=== PATIENT | male | born 1990 | race American Indian/Alaskan Native ===

== ENCOUNTER 2020-03-09 20:40 | Emergency (ER) | payer SELFPAY ==
[2020-03-09 21:26] LABS: Basophils # (Auto) 0.1 K/mm3 (0.0-0.1); Basophils % (Auto) 0.4 % (0.0-1.8); Hematocrit 41.3 % (35.5-45.6); Lymphocytes # (Auto) 1.2 K/mm3 (1.2-5.4); Lymphocytes % (Auto) 8.7 % (13.4-35.0); Mean Corpuscular HGB Conc 34 % (32-34); Mean Corpuscular Volume 91 fl (84-94); Monocytes # (Auto) 1.2 K/mm3 (0.0-0.8); Monocytes % (Auto) 9.1 % (0.0-7.3); Platelet Count 235 K/mm3 (140-440); Red Blood Count 4.54 M/mm3 (3.65-5.03); Red Cell Distribution Width 12.9 % (13.2-15.2)
[2020-03-09 21:43] LABS: BUN/Creatinine Ratio 17; Blood Urea Nitrogen 27 mg/dL (9-20); Calcium 9.6 mg/dL (8.4-10.2); Hemolysis Index 36
--- NOTE | 2020-03-09 21:46 | Emergency Department Report ---
ED Psych HPI - General Chief Complaint: Psych Stated Complaint: ANXIETY Time Seen by Provider: 03/09/20 21:14 Source: patient, family Mode of arrival: Ambulatory Limitations: No Limitations - History of Present Illness Initial Comments: Laly is a 29 yo male with hx of anxiety and unspecified psychosis since 2008. Hx obtained from parents mother Magui Chopra and [phone]. Parents were called by patient's shane for erratic behavior. On , shane called paramedics for abnormal behavior. He has been rearranging furniture. He has been impulsive, paranoid, confused. Patient would not get into the ambulance. He ran away. He was eventually arrested by the police department for trespassing. He was bailed out today by his parents who traveled from [place] to check on him. He has multiple bruises on extremities. Parents assume altercation occurred with police. He takes Abilify 2 mg tablets. He is stable on this medication. However, Laly, at times, attempts natural remedies for his mental health disorder. He recently graduated from college in September. He came to [place] to attending college in [facility]. He has a background in tenriism, youth ministry, and fitness. In [facility], he was receiving mental health care consistently at [facility]. He has had several odd jobs since graduatiing. No hx of tobacco, drug, alcohol use. Mother explains "he is having a mental breakdown". The last instance occurred several years ago when he stopped taking his medications. Due to current mental status, Laly gives limited history. He denies SI/HI MD Complaint: other (paranoia confusion disorganized erratic behavior) -: Gradual, days(s) (several days) Associated Psychiatric Symptoms: racing thoughts History of same: Yes Quality: constant Context: not taking psychiatric, significant life stressor (recent life changes) Treatments Prior to Arrival: other (arrested for trespassing, refusing [employer] transport) - Related Data Previous Rx's Medication Instructions Recorded Last Taken Type ARIPiprazole [Abilify TAB] 10 mg PO QDAY #30 tablet 03/14/20 Unknown Rx traZODone [Desyrel] 50 mg PO QHS #30 tablet 03/14/20 Unknown Rx Allergies Allergy/AdvReac Type Severity Reaction Status Date / Time ziprasidone [From Geodon] AdvReac Unknown Verified 03/10/20 17:44 ED Review of Systems ROS: Stated complaint: ANXIETY Other details as noted in HPI Comment: All other systems reviewed and negative Constitutional: denies: fever, malaise Respiratory: denies: cough Cardiovascular: denies: chest pain Gastrointestinal: denies: abdominal pain, nausea, vomiting Neurological: denies: headache, weakness Psychiatric: denies: anxiety, depression, auditory hallucinations, visual hallucinations ED Past Medical Hx - Past Medical History Previous Medical History?: Yes Hx Psychiatric Treatment: Yes (anxiety nonspecfic psychosis) - Surgical History Past Surgical History?: No - Social History Smoking Status: Never Smoker Substance Use Type: None - Medications Home Medications: Home Medications Medication Instructions Recorded Confirmed Last Taken Type ARIPiprazole [Abilify TAB] 10 mg PO QDAY #30 tablet 03/14/20 Unknown Rx traZODone [Desyrel] 50 mg PO QHS #30 tablet 03/14/20 Unknown Rx ED Physical Exam - General Limitations: No Limitations General appearance: alert, in no apparent distress - Head Head exam: Present: atraumatic, normocephalic - Eye Eye exam: Present: normal appearance - ENT ENT exam: Present: mucous membranes moist - Neck Neck exam: Present: normal inspection, full ROM - Respiratory Respiratory exam: Present: normal lung sounds bilaterally. Absent: respiratory distress, wheezes, rales, rhonchi - Cardiovascular Cardiovascular Exam: Present: regular rate, normal rhythm, normal heart sounds. Absent: systolic murmur, diastolic murmur, rubs, gallop - GI/Abdominal GI/Abdominal exam: Present: soft, normal bowel sounds. Absent: distended, tenderness, guarding, rebound - Rectal Rectal exam: Present: deferred - Extremities Exam Extremities exam: Present: other (bruising lower extremities, bite ciarra right wrist, right hand swelling) - Back Exam Back exam: Present: normal inspection - Neurological Exam Neurological exam: Present: alert, oriented X3 - Psychiatric Psychiatric exam: Present: flat affect - Skin Skin exam: Present: warm, dry, normal color. Absent: rash ED Course Vital Signs 03/09/20 03/10/20 03/10/20 21:16 00:01 01:01 Temperature 98.3 F Pulse Rate 82 Respiratory 16 18 19 Rate Blood Pressure 122/71 [Left] O2 Sat by Pulse 99 Oximetry 03/10/20 03/10/20 03/10/20 02:26 16:46 20:03 Temperature 98.2 F 98.3 F Pulse Rate 74 109 H 100 H Respiratory 16 18 Rate Blood Pressure 110/62 120/57 134/81 [Left] O2 Sat by Pulse 99 100 Oximetry 03/11/20 03/11/20 03/11/20 03:24 06:40 09:15 Temperature 98.0 F 98.7 F 98.8 F Pulse Rate 96 H 115 H 72 Respiratory 18 18 16 Rate Blood Pressure 138/40 146/86 120/82 [Left] O2 Sat by Pulse 100 100 96 Oximetry 03/11/20 03/11/20 03/12/20 15:26 20:00 02:00 Temperature 97.9 F 97.9 F 97.8 F Pulse Rate 76 121 H 75 Respiratory 18 20 16 Rate Blood Pressure 118/84 144/88 116/69 [Left] O2 Sat by Pulse 97 100 97 Oximetry 03/12/20 03/12/20 03/12/20 07:30 16:34 19:32 Temperature 98.0 F 98.2 F 98.9 F Pulse Rate 105 H 98 H 90 Respiratory 20 19 20 Rate Blood Pressure 138/90 128/83 116/68 [Left] O2 Sat by Pulse 97 100 98 Oximetry 03/13/20 03/13/20 03/13/20 01:14 09:25 09:38 Temperature 98.3 F 99.8 F H Pulse Rate 82 120 H 120 H Respiratory 20 18 Rate Blood Pressure 129/77 140/84 [Left] O2 Sat by Pulse 100 98 Oximetry 03/13/20 03/13/20 03/14/20 14:54 22:30 08:19 Temperature 98.7 F 97.6 F Pulse Rate 95 H 99 H Respiratory 19 18 16 Rate Blood Pressure 130/88 133/88 [Left] O2 Sat by Pulse 100 99 Oximetry 03/14/20 14:49 Temperature 98.0 F Pulse Rate 90 Respiratory 16 Rate Blood Pressure 118/82 [Left] O2 Sat by Pulse 99 Oximetry - Reevaluation(s) Reevaluation #1: 03/10/20 00:14 Upon reassessment, I saw the patient was obviously talking to a person or persons not in the room. Laughing inappropriately. I ordered Nasirdon for chemical restraint. ED Medical Decision Making - Lab Data Result diagrams: 03/14/20 09:02 03/09/20 21:16 - Medical Decision Making 1. acute psychosis [address] involuntary hold, Mr. Chopra can not ensure his safety. He has been a harm to himself. He has been trespassing. Recently incarcerated for trespassing as a result of acute psychosis. 2. Contusions of extremities: considering the possibility of human bite, Augmentin ordered Discharge recommended by psychiatry team. Outpatient resources were provided. Critical care attestation.: If time is entered above; I have spent that time in minutes in the direct care of this critically ill patient, excluding procedure time. ED Disposition Clinical Impression: Cellulitis of hand, Acute psychosis Disposition: DC-01 TO HOME OR SELFCARE Is pt being admited?: No Does the pt Need Aspirin: No Condition: Stable Instructions: Brief Psychotic Disorder (ED), Anxiety (ED) Prescriptions: traZODone [Desyrel] 50 mg PO QHS #30 tablet ARIPiprazole [Abilify TAB] 10 mg PO QDAY #30 tablet Referrals: PRIMARY CARE, [Primary Care Provider] - 3-5 Days
[2020-03-09] MEDS ORDERED: SODIUM CHLORIDE 0.9% 1000 ML 1,000 ML IV ONE ×2 (22:01→22:49)
[2020-03-09] MEDS: AMOXICILLIN/K CLAV 875/125MG TAB PO SCH (22:19)
[2020-03-09] MEDS ORDERED: HYDROcodone/ACETAMINOPHEN 5-325 MG TAB PO ONE (23:56)
[2020-03-10] MEDS ORDERED: GLUCAGON (HUMAN RECOMBINANT) 1 MG/ML INJ ONE (00:24)
[2020-03-10] MEDS ORDERED: ZIPRASIDONE MESYLATE 20 MG VIAL IM ONE ×2 (00:25→00:34)
[2020-03-10 07:19] LABS: Bilirubin,Urine NEG (Negative); Blood,Urine LG (Negative); Color,Urine Yellow (Yellow); Mucus,Urine FEW /HPF; Urobilinogen,Urine < 2.0 mg/dL (<2.0)
[2020-03-10 07:32] LABS: Amphetamine Screen,Urine PRESUMPTIVE NEGATIVE; Benzodiazepines Screen,Urine PRESUMPTIVE NEGATIVE; Cocaine Screen,Urine PRESUMPTIVE NEGATIVE; Methadone Screen,Urine PRESUMPTIVE NEGATIVE; Opiate Screen,Urine PRESUMPTIVE NEGATIVE
[2020-03-10 07:45] LABS: Cannabinoid Screen,Urine PRESUMPTIVE POSITIVE
[2020-03-10] MEDS: AMOXICILLIN/K CLAV 875/125MG TAB PO SCH ×2 (10:30→22:01)
[2020-03-10] MEDS ORDERED: diphenhydrAMINE 50 MG/ML VIAL ONE (16:04)
[2020-03-10] MEDS ORDERED: diphenhydrAMINE 50 MG/ML VIAL IV ONE (16:05)
[2020-03-10] MEDS ORDERED: LORazepam 2 MG/ML VIAL IV ONE (16:25)
[2020-03-10] MEDS ORDERED: LORazepam 2 MG/ML VIAL ONE (16:38)
[2020-03-10] MEDS ORDERED: ACETAMINOPHEN 500 MG TAB PO ONE (16:45)
[2020-03-10] MEDS ORDERED: ACETAMINOPHEN 500 MG TAB ONE (16:57)
[2020-03-10] MEDS: ARIPiprazole 5 MG TAB PO SCH (20:17)
[2020-03-11] MEDS ORDERED: SODIUM CHLORIDE 0.9% 1000 ML 1,000 ML IV ONE (06:43)
[2020-03-11] MEDS ORDERED: LORazepam 2 MG/ML VIAL IV ONE (06:43)
[2020-03-11] MEDS ORDERED: LORazepam 2 MG/ML VIAL ONE (06:46)
[2020-03-11] MEDS ORDERED: SODIUM CHLORIDE 0.9% 1000 ML 1,000 ML ONE (06:46)
[2020-03-11] MEDS: ARIPiprazole 5 MG TAB PO SCH (11:00)
[2020-03-11] MEDS: AMOXICILLIN/K CLAV 875/125MG TAB PO SCH ×2 (11:00→21:40)
--- NOTE | 2020-03-11 12:30 | Consultation ---
History of Present Illness - Reason for Consult Consult date: 03/11/20 Reason for consult: phychosis - History of Present Psychiatric Illness The patient's medical record was reviewed and the patient's progress was discussed with the nursing staff. The nurse note states the patient was not in his room and tech was notified that the patient was walking down back azar ~ 0605. Security called and they were unable to locate the patient. [employer] called. The patient was brought [facility] Laly Chopra is a 29y/o male patient who was brought to the hospital by his parents for erratic behavior. During my interview with the patient this morning, he was lying on the cot. He is malodorous. He was asleep but easily arouses. His speech is muffled and low. He is a poor historian. He smiles inappropriately at times. The patient says "I'm not sure why I was admitted." He says, "they thought I was trespassing and trying to break into stuff." He says he has a history of "anxiety, depression and psychosis." The patient says he takes "abilify" to manage his symptoms. He denies SI/HI or hallucinations of any kind. He says he's attempted suicide "once in the past." He says he's been admitted for psych issues "years ago." The patient states, "all this happening with black people getting killed, I was on edge. It was getting to me." He says, "but right now I feel good, chill." He denies any illicit drug use, despite being positive for marijuana. He denies alcohol or nicotine use. PAST PSYCHIATRIC HISTORY: Diagnoses: "anxiety, depression, psychosis" Suicide attempts or Self-harm behavior: Once Prior psychiatric hospitalizations: "years ago" Substance Abuse history: Denies Previous psychiatric medications tried: Abilify Outpatient treatment: Yes PAST MEDICAL HISTORY: None reported Family Psychiatric History: None reported or documented SOCIAL HISTORY Marital Status: Living Arrangements: Employment Status: Employed Access to guns/weapons: Denies Education: Bachelors History of abuse: Denies Legal History: Denies ROS Constitutional: Negative for weight loss EMT: Negative for stridor Respiratory: Negative for cough or hemoptysis All other systems reviewed and are negative MENTAL STATUS EXAMINATION General Appearance: Poor hygiene Behavior: Calm and cooperative. Poor eye contact. Smiles inappropriately. Mood: "Good. Chill" Affect: Congruent with stated mood Speech: Muffled, low tone Thought Process: Goal oriented Suicidal Ideation: Denies Homicidal Ideation: Denies Hallucinations: Denies Delusions: None elicited Insight and Judgment: Limited Memory/Cognition: Limited Assessment and Plan Schizoaffective Disorder RECOMMENDATIONS MEDICATIONS Restarted Abilify 5mg po daily yesterday (increased dose from 2mg po daily) Trazodone 50mg po qhs Geodon 20mg IM q4h prn agitation Risks, benefits and alternatives of medications discussed with the patient, questions answered and consent obtained from patient. PSYCHOTHERAPY: Supportive psychotherapy provided MEDICAL: Per primary team DELIRIUM PRECAUTIONS: Please re-orient patient frequently, keep lights on during the day, and minimize benzodiazepines and opiates as these medications could worsen patient's confusion. LICENSING AND REGISTRATION DIRECTOR: Per medical team DISPOSITION: The patient meets the requirement for acute inpatient psychiatric treatment. He may transfer to an acute facility once medically clear Will continue to follow until the patient is transferred or improves enough for discharge. Thank you for the consult. Please contact with any questions and/or concerns. Medications and Allergies Allergies Allergy/AdvReac Type Severity Reaction Status Date / Time ziprasidone [From Geodon] AdvReac Unknown Verified 03/10/20 17:44 Home Medications Medication Instructions Recorded Confirmed Last Taken Type ARIPiprazole [Abilify TAB] 5 mg PO DAILY 03/09/20 03/09/20 Unknown History Active Meds: Active Medications Amoxicillin/Clavulanate Potassium (Augmentin 875 Mg) 1 each PO BID [facility] Stop: 03/16/20 21:59 Last Admin: 03/10/20 22:01 Dose: 1 each Documented by: Aripiprazole (Aripiprazole) 5 mg PO DAILY [facility] Last Admin: 03/10/20 20:17 Dose: 5 mg Documented by: Mental Status Exam - Vital signs Last Vital Signs Temp 98.8 F 03/11/20 09:15 Pulse 72 03/11/20 09:15 Resp 16 03/11/20 09:15 BP 120/82 03/11/20 09:15 Pulse Ox 96 03/11/20 09:15 Results Result Diagrams: 03/09/20 21:16 03/09/20 21:16 All other labs normal.
[2020-03-11] MEDS ORDERED: ZIPRASIDONE MESYLATE 20 MG VIAL IM PRN (12:44)
[2020-03-11] MEDS: traZODone 50 MG TAB PO SCH (21:40)
[2020-03-12] MEDS: AMOXICILLIN/K CLAV 875/125MG TAB PO SCH ×2 (11:00→21:52)
[2020-03-12] MEDS: ARIPiprazole 5 MG TAB PO SCH (11:00)
--- NOTE | 2020-03-12 11:18 | Progress Note ---
Subjective - Reason for Consult Consult date: 03/12/20 Reason for consult: psychosis - Chief Complaint Chief complaint: The patient's medical record was reviewed and the patient's progress was discussed with the nursing staff. The nurse caring for the patient states he has been pushing the walk and walking along side of it as if he is blind. During my interview with the patient today, he is awake. He is a/ox 2. His behavior is bizarre and disorganized. The patient is attempting to put on his shirt. He is having great difficulty. He is tossing and flipping the shirt in an attempt to not have it inside out. He denies SI/HI. He also denies hallucina tions of any kind. He keeps his head down with his eyes closed, and refuses to look at me. When asked, he states "I'm good, I see you, I'm trying to rest and stay in a state of peace." ROS Constitutional: Negative for weight loss EMT: Negative for stridor Respiratory: Negative for cough or hemoptysis All other systems reviewed and are negative MENTAL STATUS EXAMINATION General Appearance: Poor hygiene Behavior: Bizarre. Disorganized. Mood: "Good." Affect: Congruent with stated mood Speech: Normal tone and pace Thought Process: Disorganized Suicidal Ideation: Denies Homicidal Ideation: Denies Hallucinations: Denies Delusions: None elicited Insight and Judgment: Limited Memory/Cognition: Limited Assessment and Plan Schizoaffective Disorder RECOMMENDATIONS MEDICATIONS Increased Abilify 10mg po daily Depakote DR 125mg po BID Risks, benefits and alternatives of medications discussed with the patient, questions answered and consent obtained from patient. PSYCHOTHERAPY: Supportive psychotherapy provided MEDICAL: Per primary team DELIRIUM PRECAUTIONS: Please re-orient patient frequently, keep lights on during the day, and minimize benzodiazepines and opiates as these medications could worsen patient's confusion. FOREX TRADER: Per medical team DISPOSITION: The patient meets the requirement for acute inpatient psychiatric treatment. He may transfer to an acute facility once medically clear Will continue to follow until the patient is transferred or improves enough for discharge. Thank you for the consult. Please contact with any questions and/or concerns Mental Status Exam - Vital signs Last Vital Signs Temp 98.0 F 03/12/20 07:30 Pulse 105 H 03/12/20 07:30 Resp 20 03/12/20 07:30 BP 138/90 03/12/20 07:30 Pulse Ox 97 03/12/20 07:30
[2020-03-12] MEDS: DIVALPROEX DR 125 MG TAB PO SCH ×2 (12:36→21:53)
[2020-03-12] MEDS: traZODone 50 MG TAB PO SCH (21:55)
--- NOTE | 2020-03-13 10:05 | Progress Note ---
Subjective - Reason for Consult Consult date: 03/13/20 Reason for consult: pyshcosis - Chief Complaint Chief complaint: The patient's medical record was reviewed and the patient's progress was discussed with the nursing staff. During my interview with the patient today, he is awake. He is a/ox 2. His behavior is bizarre and disorganized. The patient is sitting across the chair with his right arm straight up. He has no shirt on. He is malodorous. He is rubbing on his chest. He greets me when I enter the room. When I ask about his arm, the patient replies, "this is really my left arm. When I came in someone switched the rotation of my arms." He then says this is my left arm, and this is my right arm." He says, "the other people in this room sees it. It has happened to them too." The patient denies SI/HI or hallucinations of any kind. He states, "no, not at all to both questions." He describes his mood as, "totally fine." He begins talking about some unrelated topics. ROS Constitutional: Negative for weight loss EMT: Negative for stridor Respiratory: Negative for cough or hemoptysis All other systems reviewed and are negative MENTAL STATUS EXAMINATION General Appearance: Poor hygiene Behavior: Bizarre. Disorganized. Mood: "totally fine" Affect: Congruent with stated mood Speech: Tangential Thought Process: Disorganized Suicidal Ideation: Denies Homicidal Ideation: Denies Hallucinations: Denies Delusions: None elicited Insight and Judgment: Limited Memory/Cognition: Impaired Assessment and Plan Schizoaffective Disorder RECOMMENDATIONS MEDICATIONS Vistaril 25mg po BID Increase Depakote DR 250mg po BID Risks, benefits and alternatives of medications discussed with the patient, questions answered and consent obtained from patient. PSYCHOTHERAPY: Supportive psychotherapy provided MEDICAL: Per primary team DELIRIUM PRECAUTIONS: Please re-orient patient frequently, keep lights on during the day, and minimize benzodiazepines and opiates as these medications could worsen patient's confusion. CREDIT RISK REVIEW OFFICER: Per medical team DISPOSITION: The patient meets the requirement for acute inpatient psychiatric treatment. He may transfer to an acute facility once medically clear Will continue to follow until the patient is transferred or improves enough for discharge. Thank you for the consult. Please contact with any questions and/or concerns Mental Status Exam - Vital signs Last Vital Signs Temp 99.8 F H 03/13/20 09:38 Pulse 120 H 03/13/20 09:38 Resp 18 03/13/20 09:38 BP 140/84 03/13/20 09:38 Pulse Ox 98 03/13/20 09:38
[2020-03-13] MEDS: AMOXICILLIN/K CLAV 875/125MG TAB PO SCH ×2 (10:57→22:18)
[2020-03-13] MEDS: DIVALPROEX DR 250 MG TAB PO SCH ×2 (10:58→22:18)
[2020-03-13] MEDS: ARIPiprazole 10 MG TAB PO SCH (10:58)
[2020-03-13] MEDS: hydrOXYzine PAMOATE 25 MG CAP PO SCH ×2 (10:58→22:18)
[2020-03-13] MEDS: DIVALPROEX DR 125 MG TAB PO SCH (11:03)
[2020-03-13] MEDS: traZODone 50 MG TAB PO SCH (22:18)
[2020-03-14 09:36] LABS: Hematocrit 41.9 % (35.5-45.6); Hemoglobin 14.2 gm/dl (11.8-15.2); Mean Corpuscular HGB Conc 34 % (32-34); Mean Corpuscular Volume 91 fl (84-94); Platelet Count 308 K/mm3 (140-440); Red Blood Count 4.59 M/mm3 (3.65-5.03); Red Cell Distribution Width 12.9 % (13.2-15.2)
[2020-03-14] MEDS: AMOXICILLIN/K CLAV 875/125MG TAB PO SCH (11:11)
[2020-03-14] MEDS: ARIPiprazole 10 MG TAB PO SCH (11:11)
[2020-03-14] MEDS: hydrOXYzine PAMOATE 25 MG CAP PO SCH (11:12)
[2020-03-14] MEDS: DIVALPROEX DR 250 MG TAB PO SCH (11:12)
[2020-03-14] MEDS ORDERED: DIVALPROEX DR 250 MG TAB PO SCH (13:01)
--- NOTE | 2020-03-14 13:05 | Progress Note ---
Subjective - Reason for Consult Consult date: 03/14/20 Reason for consult: MHE Requesting physician: AMBAR CAMARILLO - Chief Complaint Chief complaint: PSYCH HPI Patient evaluated in the room this a.m. awake and alert, patient reports he knows he is in the emergency room for psych related issues. Patient reported was picked up by the police for for circulation and was taken to the police department where he was attacked by other inmates while at the police facility and was brought here for mental health evaluation. Patient denies any auditory or visual hallucination. Endorses sleeping well and compliant with medications. I spoke to the patient's family specifically mom and dad on phone this a.m. discussed patient progress and compliance to medication with no indication for continued inpatient psychiatric hospitalization and patient is to follow-up with outpatient psychiatrist and possibly for some behavioral therapy. Patient parents were receptive, their questions were answered and they agreed with the plan. ROS Constitutional: Negative for weight loss EMT: Negative for stridor Respiratory: Negative for cough or hemoptysis All other systems reviewed and are negative MENTAL STATUS EXAMINATION General Appearance: Poor hygiene Behavior: Bizarre. Disorganized. Mood: "totally fine" Affect: Congruent with stated mood Speech: Tangential Thought Process: Disorganized Suicidal Ideation: Denies Homicidal Ideation: Denies Hallucinations: Denies Delusions: None elicited Insight and Judgment: Limited Memory/Cognition: Impaired Assessment and Plan Schizoaffective Disorder RECOMMENDATIONS MEDICATIONS Vistaril 25mg po BID Risks, benefits and alternatives of medications discussed with the patient, ques tions answered and consent obtained from patient. PSYCHOTHERAPY: Supportive psychotherapy provided MEDICAL: Per primary team DELIRIUM PRECAUTIONS: Please re-orient patient frequently, keep lights on during the day, and minimize benzodiazepines and opiates as these medications could worsen patient's confusion. MANAGEMENT COORDINATOR: Per medical team DISPOSITION: No indication for acute hospitalization Thank you for the consult. Please contact with any questions and/or concerns Mental Status Exam - Vital signs Last Vital Signs Temp 97.6 F 03/14/20 08:19 Pulse 99 H 03/14/20 08:19 Resp 16 03/14/20 08:19 BP 133/88 03/14/20 08:19 Pulse Ox 99 03/14/20 08:19
[2020-03-14] MEDS ORDERED: DIVALPROEX DR 500 MG TAB PO SCH (13:30)
[2020-03-14 14:51] VITALS: BP 118/82
== END 2020-03-14 15:30 | disposition home or self-care (01) ==
LOC: ED 20:40 → EEVIPCON 20:40 → ED 03-14 15:30
DX: F23 Brief psychotic disorder (principal); L03.113 Cellulitis of right upper limb; Z79.899 Other long term (current) drug therapy
CPT/HCPCS: 36415; 80048; 80307; 81001; 85025; 85027; 96372; 96374; 96375; 96376; 99284; J1200; J2060; J3486; J7030; 80320; G0480; J1610; Q0177